=== PATIENT | male | born 1955 | race Caucasian/White ===

== ENCOUNTER 2025-04-15 13:05 | Emergency (ER) | payer MEDICARE, SELFPAY ==
[2025-04-15 13:10] VITALS: BP 173/102; PULSE 84; TEMP 37; O2SAT 96; BMI 30.4
--- NOTE | 2025-04-15 13:20 | ED.GENADUL1 ---
HPI HPI - General Adult General Chief complaint: Skin/Abscess/Foreign Body Stated complaint: INSECT BITE Time Seen by Provider: 04/15/25 13:08 Source: patient Mode of arrival: walk-in Limitations: no limitations History of Present Illness HPI narrative: The patient is a 69-year-old male who presents to the emergency department today for evaluation concerns for what he believes to be an insect bite with redness around it. He reports on 04/11 he noticed an area of redness to his abdomen that was near an area he thought he had an insect bite as he reported this to be a pimple-like lesion on his abdomen that he subsequently broke open a day prior. He reports since then has had ongoing redness to the abdomen with some tenderness to the area. He endorses a history of shingles and states this affected area does not feel similar to that. He reports the area to be slightly puritic. No fevers/chills or sick symptoms of nausea and vomiting. He states he is nondiabetic. He reports he has a history of hypertension however has been noncompliant with medication for the past 3 years. Related Data Previous Rx's ?Medication ?Instructions ?Recorded doxycycline monohydrate 100 mg 100 mg PO BID 7 days #14 caps 04/15/25 capsule Allergies Allergy/AdvReac Type Severity Reaction Status Date / Time No Known Drug Allergies Allergy Verified 04/15/25 13:10 Review of Systems ROS Status of ROS 10 or more systems reviewed and unremarkable except as noted in history and below PFSH PFSH Social History Little interest or pleasure in doing things: not at all Feeling down, depressed, or hopeless: not at all Exam Narrative Exam Narrative: Constituational: Awake/ alert, no apparent distress, well hydrated HENMT: normocephalic, external ears normal, moist oral mucous membranes and oropharynx normal Eyes: EOMI and conjunctivae normal Neck: ROM intact Chest: inspection of chest normal Respiratory: Normal respiratory effort, clear to auscultation bilaterally Cardio: regular rate and regular rhythm GI: soft to palpation and non-tender Back: nontender MSK: ROM intact, +NVI Skin:+ Palm sized area of erythema and warmth to touch to right lower side of abdomen just under the umbilicus. Neuro: no focal deficits Psych: mental status grossly normal Constitutional Vital Signs, click to edit/add: Last Vital Signs Pulse 84 04/15/25 13:10 Resp 18 04/15/25 13:10 BP 150/90 H 04/15/25 13:23 Pulse Ox 96 04/15/25 13:10 O2 Del Method Room Air 04/15/25 13:10 Course Vital Signs Vital signs: Vital Signs Pulse Rate 84 04/15/25 13:10 Respiratory Rate 18 04/15/25 13:10 Blood Pressure 173/102 H 04/15/25 13:10 Pulse Oximetry 96 04/15/25 13:10 Oxygen Delivery Method Room Air 04/15/25 13:10 Pulse Rate 84 04/15/25 13:10 Respiratory Rate 18 04/15/25 13:10 Blood Pressure 150/90 H 04/15/25 13:23 Pulse Oximetry 96 04/15/25 13:10 Oxygen Delivery Method Room Air 04/15/25 13:10 Medical Decision Making MDM Narrative Medical decision making narrative: The patient is a nontoxic-appearing 69-year-old male who presented to the emergency department today initially for concerns of what he believed to be an insect bite with concerns for Lyme disease. Initial examination patient with clinical evidence consistent with likely cellulitis 2/2 possible folliculitis of the abdomen. Historically patient had a pimple-like lesion on the abdomen that he popped a day prior. No clinical evidence concerning for abscess. No evidence of viral etiology such as shingles. No clinical evidence concerning with eczema on exam. Patient continued to express concerns for possible Lyme and subsequent Lyme titer and tickborne illness labs obtained. These are pending at discharge. Advised patient be notified once results are available or of any abnormal results in the coming days. Advised on close follow-up with patient's primary care provider for reevaluation. Patient states he has not seen his PCP in 3 years. Patient additionally provided referral for local PCP upon discharge. Will discharge home with doxycycline for cellulitis. Discussed this with the patient including recommendations for supportive care. Discussed signs and symptoms of any worsening condition and when to consider reevaluation by the emergency department. Patient verbalized an understanding of this and is agreeable with the plan to be discharged home. Medical Records Medical records reviewed: Yes I reviewed the patient's medical records Discharge Plan Discharge Chief Complaint: Skin/Abscess/Foreign Body Clinical Impression: Cellulitis, Hypertension, Noncompliance with medication regimen Patient Disposition: Home, Self-Care Prescriptions / Home Meds: New doxycycline monohydrate 100 mg capsule 100 mg PO BID 7 Days Qty: 14 0RF Print Language: [place] Instructions: Cellulitis (ED), Heart Healthy Diet (ED) Additional Instructions: Take antibiotics as prescribed. May apply Aquaphor or Eucerin topically to the affected area. You will need close follow-up with a primary care provider for reevaluation as discussed and to reestablish care. Referrals: Bebeto Woodall MD [Physician, Family Practice] - 1 week Physician,Non-Staff, [Primary Care Provider] - 1 week
[2025-04-15 13:23] VITALS: BP 150/90
== END 2025-04-15 13:54 | disposition home or self-care (01) ==
PROVIDERS: Nurse Practitioner; Emergency Provider Emergency Medicine
DX: L03.311 Cellulitis of abdominal wall (principal); I10 Essential (primary) hypertension; Z91.199 Patient's noncompliance with other medical treatment and regimen due to unspecified reason
CPT/HCPCS: 36415; 86618; 99283